=== PATIENT | male | born 1980 | race Hispanic/Latino ===

== ENCOUNTER → 2022-01-25 | Outpatient (CLI) | payer OTHER | LOC: M RAD 08:05 | PROVIDERS: ATTEND Physician Assistant | DX: K76.0 Fatty (change of) liver, not elsewhere classified (principal) ==

== ENCOUNTER → 2022-12-18 | Outpatient (REF) | LOC: M PLAIMG 13:24 | PROVIDERS: ATTEND Internal Medicine | DX: Z00.00 Encounter for general adult medical examination without abnormal findings (principal) ==

== ENCOUNTER → 2023-02-05 | Outpatient (CLI) | payer OTHER ==
[2023-02-05 16:07] LABS: HEMATOCRIT 47.3 % (42.0-52.0); HEMOGLOBIN 15.9 g/dl (13.5-17.5); MEAN CORPUSCULAR HEMOGLOBIN 29.3 pg (27.0-33.0); MEAN CORPUSCULAR HGB CONC 33.6 g/dl (32.0-36.5); MEAN CORPUSCULAR VOLUME 87.1 fl (80.0-96.0); PLATELET COUNT, AUTOMATED 219 10^3/uL (150-450); RED BLOOD COUNT 5.43 10^6/uL (4.30-6.10); WHITE BLOOD COUNT 5.8 10^3/uL (4.0-10.0)
[2023-02-05 16:18] LABS: ERYTHROCYTE SEDIMENTATION RATE 3 mm/hr (0-15)
[2023-02-05 16:40] LABS: FERRITIN 158.2 NG/ML (10.5-307.3); LIPASE 30 U/L (12-53); THYROID STIMULATING HORMONE 1.005 uIU/ML (0.55-4.78)
[2023-02-05 16:41] LABS: FREE T4 1.18 NG/DL (0.89-1.76)
[2023-02-05 16:42] LABS: TOTAL IRON BINDING CAPACITY 293 UG/DL (250-425)
[2023-02-05 16:43] LABS: ALBUMIN 4.6 G/DL (3.2-5.2); ALKALINE PHOSPHATASE 45 U/L (46-116); ALT/SGPT 83 U/L (7.0-40); AST/SGOT 23 U/L (<34); BILIRUBIN,TOTAL 0.7 MG/DL (0.3-1.2); BLOOD UREA NITROGEN 9 MG/DL (9-23); CALCIUM LEVEL 9.2 MG/DL (8.5-10.1); CARBON DIOXIDE LEVEL 29 MMOL/L (20-31); CHLORIDE LEVEL 103 MMOL/L (98-107); CREATININE FOR GFR 0.94 MG/DL (0.70-1.30); GLOMERULAR FILTRATION RATE > 60.0 (>60); GLUCOSE, FASTING 101 MG/DL (60-100); IRON (FE) 62 UG/DL (65-175); PERCENT SATURATION 21.2 % (19.7-50.0); POTASSIUM SERUM 4.2 MMOL/L (3.5-5.1); SODIUM LEVEL 139 MMOL/L (136-145); TOTAL PROTEIN 6.9 G/DL (5.7-8.2)
[2023-02-05 16:52] LABS: HEPATITIS B SURFACE ANTIGEN NEGATIVE (NEGATIVE)
[2023-02-05 17:12] LABS: HEPATITIS C VIRUS ABY INDEX 0.1 INDEX (<0.8)
[2023-02-05 18:21] LABS: C REACTIVE PROTEIN QUANTITATIV < 0.40 MG/DL (<1.0)
[2023-02-09 20:07] LABS: CERULOPLASMIN 17.9 mg/dL (16.0-31.0); TRANSFERRIN 237 mg/dL (177-329)
== END ==
LOC: M PLALAB 12:34
PROVIDERS: ATTEND Internal Medicine Infectious Disease
DX: R10.11 Right upper quadrant pain (principal)

== ENCOUNTER → 2023-03-05 | Outpatient (CLI) | payer OTHER ==
[~2023-03-05] MED LIST: GASTROGRAFIN SOLUTION 30ML ONE; ISOVUE-370 76% 100ML VIAL ONE
== END ==
LOC: M PLAIMG 08:56
PROVIDERS: ATTEND Internal Medicine Infectious Disease
DX: R10.11 Right upper quadrant pain (principal); R74.01 Elevation of levels of liver transaminase levels

== ENCOUNTER → 2024-06-18 | Outpatient (CLI) | payer OTHER | LOC: M RAD 07:31 | PROVIDERS: ATTEND Nurse Practitioner Family | DX: R10.9 Unspecified abdominal pain (principal) ==